=== PATIENT | male | born 1975 | race African-American/Black ===

== ENCOUNTER 2023-11-01 18:41 | Emergency (ER) | payer OTHER ==
[~2023-11-01] VITALS: Ht 177.8 cm; Wt 82.0 kg
[2023-11-01 18:51] VITALS: BP 133/75; PULSE 82; RESP 16; O2SAT 100
[2023-11-01] MEDS: CYCLOBENZAPRINE 10MG TABLET PO SCH ×2 (20:55)
== END 2023-11-01 20:59 ==
LOC: ER 18:41
DX: M79.602 Pain in left arm (principal); G89.29 Other chronic pain; Z76.0 Encounter for issue of repeat prescription
CPT/HCPCS: 99283